=== PATIENT | male | born 1995 | race Caucasian/White ===

== ENCOUNTER 2023-07-08 05:14 | Day surgery (SDC) | payer OTHER ==
[~2023-07-08] VITALS: Ht 182.9 cm; Wt 90.0 kg
[~2023-07-08 05:14] MED LIST: LR 1,000 ML IV SCH
[2023-07-08] MEDS ORDERED: MOBIC 7.5MG7.5 MG PO (05:57)
[2023-07-08] MEDS ORDERED: IBU600 MG PO (05:58)
[2023-07-08 06:25] VITALS: BP 128/83; PULSE 98; TEMP 97.7
--- NOTE | 2023-07-08 06:27 | NUR ---
PATIENT ADMITTED TO ROOM 8 AMBULATORY AND ORIENTED TO ROOM. VOICED UNDERSTANDING OF SURGERY AND CONSENT SIGNED. IVF INFUSING. FRIEND TANG IN THE ROOM WITH PATIENT. PATIENT STATES THAT THE DOCTOR MAY TALK WITH HIM AND KEEP INFORMED.
[2023-07-08] MEDS ORDERED: Lidocaine PF 2% (20 MG/ML) 5 ML VIAL ONE (07:04)
[2023-07-08] MEDS ORDERED: NS 10 ML IV ONE ×2 (07:04→07:53)
[2023-07-08] MEDS ORDERED: Succinylcholine PF 200 MG/10 ML SYRINGE IV ONE (07:04)
[2023-07-08] MEDS ORDERED: dexAMETHasone 10 MG/ML VIAL ONE (07:04)
[2023-07-08] MEDS ORDERED: Midazolam 2 MG/2 ML VIAL ONE (07:04)
[2023-07-08] MEDS ORDERED: Ondansetron 4 MG/2 ML VIAL ONE (07:04)
[2023-07-08] MEDS ORDERED: fentaNYL 50 MCG/ML 2 ML VIAL ONE ×2 (07:04→07:41)
[2023-07-08] MEDS ORDERED: Rocuronium 50 MG/5 ML Multi-Dose VIAL ONE ×2 (07:06→07:45)
[2023-07-08] MEDS ORDERED: HYDROmorphone 1 MG/1 ML SYRINGE [PACU/SDC ONLY] IV PRN (07:30)
[2023-07-08] MEDS ORDERED: Ondansetron 4 MG/2 ML VIAL IV PRN ×2 (07:30→08:45)
[2023-07-08] MEDS ORDERED: fentaNYL 50 MCG/ML 1 ML SYRINGE/VIAL [PACU/SDC ONLY] IV PRN (07:30)
[2023-07-08] MEDS ORDERED: hydrALAZINE 20 MG/ML 1 ML VIAL IV PRN (07:30)
[2023-07-08] MEDS ORDERED: Meperidine 50 MG/ML 1 ML VIAL IV PRN (07:30)
[2023-07-08] MEDS ORDERED: Topical Skin Adhesive 1 EACH (1 ML) TOP ONE (07:39)
[2023-07-08] MEDS ORDERED: HYDROmorphone 2 MG/1 ML VIAL ONE (07:52)
[2023-07-08] MEDS ORDERED: NORCO 325 MG-51 TAB PO (08:41)
[2023-07-08] MEDS ORDERED: Ibuprofen 600 MG TAB PO PRN (08:45)
[2023-07-08] MEDS ORDERED: Acetaminophen 325 MG TAB PO PRN (08:45)
[2023-07-08 09:27] VITALS: BP 116/70; PULSE 78; TEMP 97.8
[2023-07-08 09:29] VITALS: TEMP 97.7
[2023-07-08 09:45] VITALS: BP 118/74; PULSE 76
[2023-07-08 10:00] VITALS: BP 124/68; PULSE 76
[2023-07-08 10:15] VITALS: BP 125/74; PULSE 79
--- NOTE | 2023-07-08 10:56 | NUR ---
[id number]:PT TO RECOVERY BAY FROM PACU S/P LEFT ROBOTIC INGUINAL HERNIA WITH MESH A&O, PLACED ON MONITOR, VSS ON RA DRSG (3 TROCAR SITES CLOSED WITH GLUE) CDI COMPLAINS OF MODERATE ABDOMINAL PAIN RECEIVED REPORT AND ASSUMED CARE OF PT FROM [facility] FRIEND/RIDE AT BEDSIDE PROVIDED FOOD/FLUIDS, TOLERATING WELL ABD PAIN INCREASED TO INTOLERABLE LEVEL - 25 MCG FENTANYL IVP X 2 @ 0938, 0944 AND PO TYLENOL AT 0940 WHICH WAS EFFECTIVE AND WELL TOLERATED TREATED FOR MILD-MODERATE NAUSEA WITH IV ZOFRAN AND ISOPROPOL VAPOR, WHICH WAS EFFECTIVE AND TOLERATED PT HAS REMAINED A&O, NAD, VSS ON RA, TOLERATING PO, IS WITHOUT SIGNIFICANT COMPLAINT, WITH SAFE GAIT BY THE END OF STAY IV D/C'D. D/C INSTRUCTIONS, FOLLOW UP REVIEWED AND HANDED TO PT. ALL QUESTIONS AND CONCERNS ADDRESSED TO PT SATISFACTION. TAKEN TO EXIT VIA W/C WITH ALL BELONGINGS AND PAPERWORK IN HAND, ASSISTED INTO [facility]. FRIEND TO DRIVE HOME.
== END 2023-07-08 10:50 | disposition home or self-care (01) ==
LOC: SDCO 05:14
DX: K40.90 Unilateral inguinal hernia, without obstruction or gangrene, not specified as recurrent (principal); J45.909 Unspecified asthma, uncomplicated
CPT/HCPCS: C1781; J0690; J1100; J1170; J2250; J2405; J2704; J3010; J7120